=== PATIENT | female | born 1950 | race Caucasian/White ===

== ENCOUNTER 2016-12-09 11:06 | Outpatient (CLI) | payer MEDICARE ==
--- NOTE | 2016-12-09 17:28 | Mammography Report ---
DIGITAL BILATERAL DIAGNOSTIC MAMMOGRAM: 12/09/2016 CLINICAL HISTORY: This is a 66-year-old female who has a palpable prominence in the anterior aspect of the 12 o'clock position of the right breast immediately above the right breast nipple. The patien t's family history indicates a maternal aunt with breast cancer. The patient had a biopsy of one of her breasts in the . COMPARISON: 11/12/2006, 07/11/2008, 10/24/2009, 05/21/2011, 03/26/2013, 06/13/2014, 11/10/2015 TECHNIQUE: Craniocaudad and oblique lateral views of each breast were obtained with [facility] digital mammography. To compliment the exam, an exaggerated craniocaudad view of the left breast was done, coned-down compression oblique lateral view of the left breast was done, and a coned-down c ompression mediolateral views of the right breast was obtained. FINDINGS: Heterogeneously dense breasts are noted bilaterally. There is an asymmetrical density not ed on oblique lateral view in the 12 o'clock position of each breast. Coned-down compression views o f these areas show no significant masses. These findings most likely represent benign summation shad ows. 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 This was seen on multiple preceding exams. Scattered benign-appearing calc ifications are noted in each breast. No significant clusters of calcification are seen. Minor asymm etrical densities are noted in the inner inferior quadrant of the right breast. These have been seen on multiple preceding exams. They most likely represent asymmetrical benign glandular hyperplasia. Considering patient has a clinically palpable prominence in the 12 o'clock position of the right c[address] st, and significant heterogeneously dense breasts bilaterally, recommend a right breast ultrasound to compliment the present study. Ultrasound can show abnormalities that are non-demonstrable on mammog sherie especially in the dense breast. On ultrasound, emphasis will be made to the 12 o'clock positio n of the right breast as well as in the inner inferior quadrant of the right breast and in the upper outer quadrant of the right breast. IMPRESSION: BIRADS CATEGORY 0 - INCOMPLETE. NEEDS ADDITIONAL IMAGING STUDY. RIGHT BREAST ULTRASOUND IS GOING TO BE DONE TODAY TO COMPLIMENT THE PRESENT EXAM FOR REASONS DISCUSSED ABOVE. STANDARD QUALIFYING STATEMENTS 1. This examination was reviewed with the aid of Computer-Aided Detection (CAD). 2. A negative or benign imaging report should not delay biopsy if clinically suspicious findings are present. Consider surgical consultation if warranted. More than 5% of cancers are not identified by i maging. 3. Dense breasts may obscure an underlying neoplasm. JOB #: [id number] EXT JOB #:
--- NOTE | 2016-12-09 17:55 | Ultrasound Report ---
RIGHT BREAST ULTRASOUND: 12/09/2016 CLINICAL HISTORY: The patient has a palpable right breast prominence at the 11- 12 o'clock position immediately above the right subareolar region. The patient' s mammogram today showed significantly heterogeneously dense breasts without a definite abnormality noted. A right breast ultrasound is being done for further evaluation of the palpable prominence. TECHNIQUE: Real-time scanning was performed with goodwill representative static images obtained. FINDINGS: Significant glandular hyperplasia is seen throughout the upper outer quadrant of the right breast. Most pronounced area of glandular hyperplasia is within the region of palpable concern within the 11-12 o'clock position immediately superior to the right subareolar region. There is a prominent area of glandular hyperplasia in this region measuring 2 cm by 1.8 cm by 1.6 cm. This area of significant glandular hyperplasia is associated with some mild increased vascularity and prominent shadowing. There are some other areas of glandular hyperplasia that are similar in appearance including the shadowing and mild increased vascularity but are smaller. These are located in the 10 o' clock and 9 o'clock positions. These areas of glandular hyperplasia with shadowing are nonspecific. They could represent areas of multifocal breast cancer or multiple areas of glandular hyperplasia. Optimally, a bilateral breast MRI would be very helpful for further evaluation. The patient indicates, however, that she is highly claustrophobic. If a breast MRI is going to be done , it needs to be done either in an open scanner and/or with conscious sedation. (A possible location where this can be done is at [facility] supervised by Dr. Sydni Salmeron). If patient cannot tolerate a breast MRI, other options include a surgical consult. In conjunction with the surgical consult, either a clinically directed biopsy and/or ultrasound-guided biopsy could be obtained. These options were extensively discussed by Dr. Car with the patient. In the 1 o'clock position of the right breast, several centimeters superomedial to the right nipple, a hypoechoic well-circumscribed mass was noted. This mass measured 1 cm by 0.5 cm by 1 cm. This oval-shaped mass had a configuration that suggested a benign fibroadenoma. It should be followed with a repeat right breast ultrasound in six months for further evaluation. The right axilla was scanned in detail and no significant abnormality was noted. No enlarged lymph nodes were seen. IMPRESSION: 1. MULTIPLE AREAS OF GLANDULAR HYPERPLASIA WITH PROMINENT SHADOWING ARE NOTED BETWEEN THE 9 AND 12 O'CLOCK POSITIONS. THE MOST SUSPICIOUS OF THESE AREAS OF CONCERN RESIDE IN THE REGION OF THE PATIENT'S PALPABLE MASS AT 11 O'CLOCK POSITION OF THE RIGHT BREAST IMMEDIATELY SUPERIOR LATERAL TO THE RIGHT NIPPLE. THE PRESENT FINDINGS ARE NOT DEFINITIVE. RECOMMEND ADDITIONAL STUDIES SUCH A BILATERAL BREAST MRI. BECAUSE THE PATIENT IS HIGHLY CLAUSTROPHOBIC, BREAST MRI SHOULD BE DONE IN AN OPEN MRI SCANNER AND/OR WITH CONSCIOUS SEDATION. IF A BILATERAL BREAST MRI CANNOT BE DONE, OPTIONS FOR FURTHER WORKUP ARE DISCUSSED ABOVE. 2. AN 1 CM BY 0.5 CM BY 1 CM WELL-CIRCUMSCRIBED MASS IS NOTED AT THE 1 O'CLOCK POSITION OF THE RIGHT BREAST. THIS PROBABLY REPRESENTS A BENIGN FIBROADENOMA. THIS MASS SHOULD BE FOLLOWED WITH A REPEAT RIGHT BREAST ULTRASOUND IN SIX MONTHS FOR FURTHER EVALUATION. BIRADS CATEGORY 0-INCOMPLETE. NEEDS ADDITIONAL IMAGING EVALUATION-BILATERAL BREAST MRI. COMMENT: Dr. Car informed the patient's physician with the above findings and recommendations. Dr. Car discussed also in detail with the patient regarding these findings and recommendations. This was done on 12/09/2016 at 1: 30 p.m. JOB #: [id number] EXT JOB #: [id number] FRANK
== END 2016-12-09 11:07 | disposition home or self-care (01) ==
LOC: DI 11:06
PROVIDERS: ATTEND Internal Medicine
DX: N63 Unspecified lump in breast (principal); N62 Hypertrophy of breast
CPT/HCPCS: 76642; G0204; 77066

== ENCOUNTER 2017-03-12 08:00 | Outpatient (CLI) | payer MEDICARE ==
[2017-03-12 18:34] LABS: ALBUMIN/GLOBULIN RATIO 1.7 (1.0-2.2); BILIRUBIN,TOTAL 0.6 mg/dL (0.2-1.0); CALCIUM 9.1 mg/dL (8.5-10.3); CREATININE 0.6 mg/dL (0.4-1.0); TOTAL PROTEIN 6.9 g/dL (6.7-8.2)
== END 2017-03-12 08:01 | disposition home or self-care (01) ==
LOC: LAB.F 08:00
PROVIDERS: ATTEND Internal Medicine
DX: Z13.9 Encounter for screening, unspecified (principal)
CPT/HCPCS: 36415; 80053

== ENCOUNTER 2018-02-02 08:29 | Outpatient (CLI) | payer MEDICARE ==
[2018-02-02 17:46] LABS: BASOPHILS % (AUTO) 0.9 %; EOSINOPHILS % (AUTO) 0.7 %; HGB - HEMOGLOBIN 13.7 g/dL (12.0-16.0); LYMPHOCYTES # (AUTO) 1.1 10^3/uL (1.5-3.5); LYMPHOCYTES % (AUTO) 27.2 %; MEAN CORPUSCULAR HEMOGLOBIN 32.4 pg (27.0-31.0); MEAN CORPUSCULAR HGB CONC 32.7 g/dL (32.0-36.0); MEAN CORPUSCULAR VOLUME 98.9 fL (81.0-99.0); MEAN PLATELET VOLUME 9.9 fL (7.9-10.8); MONOCYTES # (AUTO) 0.3 10^3/uL (0.0-1.0); MONOCYTES % (AUTO) 7.8 %; NEUTROPHILS # (AUTO) 2.6 10^3/uL (1.5-6.6); NEUTROPHILS % (AUTO) 63.4 %; PLT - PLATELET COUNT 157 10^3/uL (130-450); RED BLOOD COUNT 4.23 10^6/uL (4.20-5.40); RED CELL DISTRIBUTION WIDTH 13.1 % (12.0-15.0); WHITE BLOOD COUNT 4.1 x10^3/uL (4.8-10.8)
[2018-02-02 19:08] LABS: ALBUMIN/GLOBULIN RATIO 1.6 (1.0-2.2); ALKALINE PHOSPHATASE 40 IU/L (42-121); ALT ALANINE AMINOTRANSFERASE 17 IU/L (10-60); AST ASPARTATE AMINOTRANSFERASE 19 IU/L (10-42); BILIRUBIN,TOTAL 0.7 mg/dL (0.2-1.0); BUN - BLOOD UREA NITROGEN 13 mg/dL (6-20); CALCIUM 8.9 mg/dL (8.5-10.3); CARBON DIOXIDE - CO2 29 mmol/L (21-32); CHLORIDE 107 mmol/L (101-111); CHOL/HDL RATIO 2.7 (<4.4); CHOLESTEROL 162 mg/dL; CREATININE 0.6 mg/dL (0.4-1.0); GFR - MDRD 100 (>89); GLUCOSE 92 mg/dL (70-100); HDL CHOLESTEROL 61 mg/dL; LDL CHOLESTEROL,CALCULATED 87 mg/dL; LDL/HDL RATIO 1.4 (<4.4); SODIUM 140 mmol/L (135-145); TOTAL PROTEIN 6.5 g/dL (6.7-8.2); VLDL CHOLESTEROL 14 mg/dL
== END 2018-02-02 08:30 | disposition home or self-care (01) ==
LOC: LAB.F 08:29
PROVIDERS: ATTEND Internal Medicine
DX: E55.9 Vitamin D deficiency, unspecified (principal); M81.0 Age-related osteoporosis without current pathological fracture; M41.9 Scoliosis, unspecified
CPT/HCPCS: 36415; 80053; 80061; 82306; 83721; 85025

== ENCOUNTER 2020-02-22 07:04 | Outpatient (CLI) | payer MEDICARE ==
[2020-02-22 14:59] LABS: BASOPHILS % (AUTO) 0.6 %; EOSINOPHILS % (AUTO) 0.6 %; HGB - HEMOGLOBIN 13.2 g/dL (12.0-16.0); LYMPHOCYTES # (AUTO) 1.1 10^3/uL (1.5-3.5); LYMPHOCYTES % (AUTO) 23.8 %; MEAN CORPUSCULAR HEMOGLOBIN 32.8 pg (27.0-31.0); MEAN CORPUSCULAR HGB CONC 32.1 g/dL (32.0-36.0); MEAN PLATELET VOLUME 11.2 fL (7.9-10.8); MONOCYTES # (AUTO) 0.4 10^3/uL (0.0-1.0); MONOCYTES % (AUTO) 8.1 %; NEUTROPHILS # (AUTO) 3.1 10^3/uL (1.5-6.6); NEUTROPHILS % (AUTO) 66.5 %; PLT - PLATELET COUNT 178 10^3/uL (130-450); RED BLOOD COUNT 4.03 10^6/uL (4.20-5.40); RED CELL DISTRIBUTION WIDTH 12.6 % (12.0-15.0); WHITE BLOOD COUNT 4.7 x10^3/uL (4.8-10.8)
[2020-02-22 15:36] LABS: ALBUMIN 3.9 g/dL (3.2-5.5); ALBUMIN/GLOBULIN RATIO 1.6 (1.0-2.2); ALKALINE PHOSPHATASE 56 IU/L (42-121); ALT ALANINE AMINOTRANSFERASE 15 IU/L (10-60); AST ASPARTATE AMINOTRANSFERASE 22 IU/L (10-42); BILIRUBIN,TOTAL 0.7 mg/dL (0.2-1.0); BUN - BLOOD UREA NITROGEN 18 mg/dL (6-20); CARBON DIOXIDE - CO2 27 mmol/L (21-32); CHLORIDE 108 mmol/L (101-111); CHOL/HDL RATIO 2.1 (<4.4); CHOLESTEROL 176 mg/dL; CREATININE 0.7 mg/dL (0.4-1.0); GLUCOSE 93 mg/dL (70-100); HDL CHOLESTEROL 82 mg/dL; LDL CHOLESTEROL,CALCULATED 85 mg/dL; SODIUM 142 mmol/L (135-145); TOTAL PROTEIN 6.4 g/dL (6.7-8.2); VLDL CHOLESTEROL 9 mg/dL
[2020-02-22 19:43] LABS: RHEUMATOID FACTOR NEGATIVE (Negative)
== END 2020-02-22 07:05 | disposition home or self-care (01) ==
LOC: LAB.S 07:04
PROVIDERS: ATTEND Registered Nurse
DX: M19.90 Unspecified osteoarthritis, unspecified site (principal); Z13.228 Encounter for screening for other metabolic disorders; Z13.220 Encounter for screening for lipoid disorders; Z13.29 Encounter for screening for other suspected endocrine disorder; Z13.0 Encounter for screening for diseases of the blood and blood-forming organs and certain disorders involving the immune mechanism; Z11.4 Encounter for screening for human immunodeficiency virus [HIV]
CPT/HCPCS: 36415; 80053; 80061; 84443; 85025; 86038; 86200; 86430; G0475; 83721; 87389

== ENCOUNTER 2020-03-07 07:00 | Outpatient (CLI) | payer MEDICARE | END 2020-03-07 23:59 | disposition home or self-care (01) | LOC: LAB.R 07:00 | PROVIDERS: ATTEND Registered Nurse | DX: Z12.11 Encounter for screening for malignant neoplasm of colon (principal) | CPT/HCPCS: 82274 ==

== ENCOUNTER 2020-11-16 08:00 | Outpatient (CLI) | payer MEDICARE ==
--- NOTE | 2020-11-16 09:06 | XRAY Report ---
PROCEDURE: Shoulder 3 View RT INDICATIONS: RIGHT SHOULDER SPRAIN TECHNIQUE: 3 views of the shoulder were acquired. COMPARISON: None. FINDINGS: Bones: No fractures or dislocations. Mild degenerative change at the acromial clavicular joint. No suspicious bony lesions. Visualized ribs appear intact. Soft tissues: No suspicious soft tissue calcifications. Surgical clips in the right axilla are pres ent. IMPRESSION: 1. Mild AC joint degeneration. 2. No fracture or dislocation. Reviewed by: Felicity Castillo MD on 11/16/2020 9:04 AM PDT Approved by: Felicity Castillo MD on 11/16/2020 9:04 AM PDT Station ID: [id number]
== END 2020-11-16 23:59 | disposition home or self-care (01) ==
LOC: DI.S 08:00
PROVIDERS: ATTEND Emergency Medicine
DX: S43.491A Other sprain of right shoulder joint, initial encounter (principal); M19.011 Primary osteoarthritis, right shoulder

== ENCOUNTER 2022-03-19 15:03 | Outpatient (CLI) | payer MEDICARE ==
--- NOTE | 2022-03-19 16:41 | DEXA Report ---
PROCEDURE: Dexa Spine and/or Hip INDICATIONS: POST MENOPAUSAL TECHNIQUE: Dual energy x-ray absorptiometry (DXA) was performed on a Inspirato System. Regions measur ed are the AP Spine, femoral neck, and if needed forearm. COMPARISON: 11/20/2015 FINDINGS: Lumbar Spine: Bone Mineral Density 1.313 g/cm/cm,T score 1.1, normal. Previous T score of -1.1. It is unclear if there has been true interval improvement versus an increase in degenerative changes. Left Hip: Bone Mineral Density 0.885 g/cm/cm,T score -1.0, normal. Previous T score of -1.9. Left Femoral Neck: Bone Mineral Density 0.861 g/cm/cm, T score -1.3, osteopenia. Previous T score of -2.3. (T score greater or equal to -1.0: NORMAL) (T score from -1.1 to -2.4: OSTEOPENIA) (T score less than or equal to -2.5 to: OSTEOPOROSIS) Impression: Osteopenia. Patients with diagnosis of osteoporosis or osteopenia should have regular bone mineral density assess ment. For those eligible for Medicare, routine testing is allowed once every 2 years. Testing frequ ency can be increased for patients who have rapidly progressing disease or for those who are receivin g medical therapy to restore bone mass. Reviewed by: Ethan Eng MD on 03/19/2022 4:39 PM PDT Approved by: Ethan Eng MD on 03/19/2022 4:39 PM PDT Station ID: [id number]
== END 2022-03-19 15:04 | disposition home or self-care (01) ==
LOC: DI 15:03
PROVIDERS: ATTEND Registered Nurse
DX: Z78.0 Asymptomatic menopausal state (principal); M85.88 Other specified disorders of bone density and structure, other site

== ENCOUNTER 2022-04-04 09:38 | Outpatient (CLI) | payer MEDICARE ==
[2022-04-04 14:25] LABS: BASOPHILS % (AUTO) 0.7 %; EOSINOPHILS % (AUTO) 0.7 %; HCT - HEMATOCRIT 43.1 % (37.0-47.0); HGB - HEMOGLOBIN 13.8 g/dL (12.0-16.0); LYMPHOCYTES # (AUTO) 1.9 10^3/uL (1.5-3.5); LYMPHOCYTES % (AUTO) 34.3 %; MEAN CORPUSCULAR HEMOGLOBIN 31.7 pg (27.0-31.0); MEAN CORPUSCULAR VOLUME 98.9 fL (81.0-99.0); MEAN PLATELET VOLUME 11.1 fL (7.9-10.8); MONOCYTES # (AUTO) 0.5 10^3/uL (0.0-1.0); NEUTROPHILS # (AUTO) 3.1 10^3/uL (1.5-6.6); NEUTROPHILS % (AUTO) 55.8 %; PLT - PLATELET COUNT 199 10^3/uL (130-450); RED BLOOD COUNT 4.36 10^6/uL (4.20-5.40); RED CELL DISTRIBUTION WIDTH 12.7 % (12.0-15.0); WHITE BLOOD COUNT 5.6 x10^3/uL (4.8-10.8)
[2022-04-04 14:50] LABS: ALBUMIN 4.2 g/dL (3.2-5.5); ALBUMIN/GLOBULIN RATIO 1.4 (1.0-2.2); ALKALINE PHOSPHATASE 67 IU/L (42-121); ALT ALANINE AMINOTRANSFERASE 16 IU/L (10-60); AST ASPARTATE AMINOTRANSFERASE 25 IU/L (10-42); BILIRUBIN,TOTAL 0.9 mg/dL (0.2-1.0); BUN - BLOOD UREA NITROGEN 18 mg/dL (6-20); CALCIUM 9.1 mg/dL (8.5-10.3); CARBON DIOXIDE - CO2 29 mmol/L (21-32); CHLORIDE 104 mmol/L (101-111); CHOL/HDL RATIO 2.4 (<4.4); CHOLESTEROL 201 mg/dL; CREATININE 0.7 mg/dL (0.4-1.0); GFR - MDRD 82 (>89); GLUCOSE 96 mg/dL (70-100); HDL CHOLESTEROL 85 mg/dL; LDL CHOLESTEROL,CALCULATED 105 mg/dL; LDL/HDL RATIO 1.2 (<4.4); POTASSIUM 4.2 mmol/L (3.5-5.0); SODIUM 141 mmol/L (135-145); TOTAL PROTEIN 7.3 g/dL (6.7-8.2); TRIGLYCERIDES 56 mg/dL; VLDL CHOLESTEROL 11 mg/dL
[2022-04-04 15:02] LABS: THYROID STIMULATING HORMONE 2.3 uIU/mL (0.34-5.60)
== END 2022-04-04 09:39 | disposition home or self-care (01) ==
LOC: LAB.S 09:38
PROVIDERS: ATTEND Registered Nurse
DX: Z79.899 Other long term (current) drug therapy (principal); Z13.220 Encounter for screening for lipoid disorders; Z13.29 Encounter for screening for other suspected endocrine disorder
CPT/HCPCS: 36415; 80053; 80061; 83721; 84443; 85025